=== PATIENT | female | born 1955 | race Caucasian/White ===

== ENCOUNTER 2016-11-25 08:58 | Emergency (ER) | payer BC, OTHER ==
[~2016-11-25] VITALS: Ht 160 cm; Wt 72.6 kg
[2016-11-25] MEDS ORDERED: FLEXERIL PO (10:47)
[2016-11-25 11:05] VITALS: BP 137/80
== END 2016-11-25 11:05 | disposition home or self-care (01) ==
LOC: ER 08:58
DX: S16.1XXA Strain of muscle, fascia and tendon at neck level, initial encounter (principal); S39.012A Strain of muscle, fascia and tendon of lower back, initial encounter; F41.9 Anxiety disorder, unspecified; E03.9 Hypothyroidism, unspecified; Z98.890 Other specified postprocedural states; Z88.1 Allergy status to other antibiotic agents; Z88.5 Allergy status to narcotic agent; V49.40XA Driver injured in collision with unspecified motor vehicles in traffic accident, initial encounter; Y93.89 Activity, other specified; Y92.89 Other specified places as the place of occurrence of the external cause; Y99.8 Other external cause status